=== PATIENT | female | born 1965 | race Caucasian/White ===

== ENCOUNTER 2017-04-15 14:20 | Outpatient (CLI) | payer BC ==
--- NOTE | 2017-04-15 15:44 | DIAGNOSTIC IMAGING REPORT ---
PROCEDURE: XR CERVICAL SPINE 2 OR 3 VIEW INDICATION: L NECK PAIN WITH R RADICULOPATHY TECHNIQUE: Three views. COMPARISON: None. FINDINGS: There is severe spondylosis at C4-5 and C5-6 with large osteophytic ridges or cervical bars at both levels. No evidence of an acute process or fracture. IMPRESSION: 1. Spondylosis C4-5 and C5-6 with large osteophytic ridges.
== END 2017-04-15 23:00 ==
LOC: XR SRH 14:20
DX: M47.812 Spondylosis without myelopathy or radiculopathy, cervical region (principal)

== ENCOUNTER 2017-04-29 15:34 | Outpatient (CLI) | payer OTHER ==
--- NOTE | 2017-04-29 17:27 | DIAGNOSTIC IMAGING REPORT ---
PROCEDURE: MG BILATERAL SCREENING W/CAD INDICATION: SCREENING TECHNIQUE: Standard CC and MLO views bilaterally. Computer aided detection was used. COMPARISON: None. FINDINGS: Moderately dense fibroglandular tissue is present bilaterally. No abnormal densities, areas of architectural distortion, or suspicious microcalcifications. IMPRESSION: 1. Normal mammograms without radiographic evidence of malignancy. RESULT CODE: 1- Negative. A. A negative report should not delay biopsy if a dominant or clinically suspicious mass is present. 10-15% of cancers are not identified by x-ray. B. A negative report may reinforce clinical impression. C. Adenosis and dense breasts may obscure an underlying neoplasm. D. False positive reports average 6-10%. E.. A yearly screening mammogram is recommended. A reminder letter will be scheduled.
== END 2017-04-29 23:00 | disposition home or self-care (01) ==
LOC: MAM SRH 15:34
DX: Z12.31 Encounter for screening mammogram for malignant neoplasm of breast (principal)